=== PATIENT | male | born 1995 | race African-American/Black ===

== ENCOUNTER 2017-11-18 18:01 | Emergency (ER) | payer SELFPAY ==
[2017-11-18 19:35] LABS: APPEARANCE,URINE CLEAR; BILIRUBIN,URINE NEGATIVE (NEGATIVE); COLOR,URINE YELLOW; GLUCOSE, URINE NEGATIVE (NEGATIVE); KETONES,URINE NEGATIVE (NEGATIVE); LEUKOCYTE ESTERASE,URINE NEGATIVE (NEGATIVE); NITRITE,URINE NEGATIVE (NEGATIVE); PROTEIN,URINE NEGATIVE (NEGATIVE); URINE SPECIFIC GRAVITY 1.027
[2017-11-18] MEDS ORDERED: PENICILLIN G BENZATHINE 1.2 MILLION UNIT/2 ML DISP.SYRIN IM ONE (20:06)
--- NOTE | 2017-11-18 20:28 | ER Document Report ---
ED GI/ - General Chief Complaint: STD Exposure Stated Complaint: POSSIBLE INFECTION Time Seen by Provider: 11/18/17 19:34 Mode of Arrival: Ambulatory Information source: Patient Notes: 22-year-old male presented to ED for treatment for syphilis. His " "was diagnosed with syphilis on his last visit on 11/16/2017. Is they have unprotected sex both partners were treated. Patient was also tested for gonorrhea and chlamydia while he was in the emergency room. He also complained of tag-like areas to his buttocks and anus. TRAVEL OUTSIDE OF THE [place] IN LAST 30 DAYS: No - HPI Patient complains to provider of: Other - Skin tags to buttocks and anus, partner has syphilis. Onset: Other - Skin tags have been for a long time and increase in the number Timing/Duration: Gradual Quality of pain: No pain Severity in ED: None Pain Level: Denies Sexual history: Rectal penetration, STD exposure Associated symptoms: Other - Skin tags to buttocks and anus, male partner has syphilis Exacerbated by: Denies Relieved by: Denies Similar symptoms previously: Yes - He has 2 skin tags no to the syphilis Recently seen / treated by doctor: No - Related Data Allergies/Adverse Reactions: No Known Allergies Allergy (Unverified 11/18/17 18:14) Past Medical History - General Information source: Patient - Social History Smoking Status: Current Every Day Smoker Cigarette use (# per day): Yes - 7-10 cigarettes a day Smoking Education Provided: Yes - Woman Frequency of alcohol use: Social Drug Abuse: None Occupation: Call center Lives with: Spouse/Significant other Family History: Arthritis - Gout, Hyperlipidemia. denies: CAD, COPD, CVA, DM, Hypertension, Malignancy, Thyroid Disfunction - Past Medical History Cardiac Medical History: Reports: None Pulmonary Medical History: Reports: None EENT Medical History: Reports: None Neurological Medical History: Reports: None Endocrine Medical History: Reports: None Renal/ Medical History: Reports: None Malignancy Medical History: Reports None GI Medical History: Reports: None Musculoskeltal Medical History: Reports None Skin Medical History: Reports None Psychiatric Medical History: Reports: None Traumatic Medical History: Reports: None Infectious Medical History: Reports: None Surgical Hx: Negative Past Surgical History: Reports: None - Immunizations Immunizations up to date: Yes Review of Systems - Review of Systems Constitutional: No symptoms reported EENT: No symptoms reported Cardiovascular: No symptoms reported Respiratory: No symptoms reported Gastrointestinal: No symptoms reported Genitourinary: No symptoms reported Male Genitourinary: Other - Multiple skin tags to buttocks and anus Musculoskeletal: No symptoms reported Skin: No symptoms reported Hematologic/Lymphatic: No symptoms reported Neurological/Psychological: No symptoms reported -: Yes All other systems reviewed and negative Physical Exam - Vital signs Vitals: Temp Pulse Resp BP Pulse Ox 98.6 F 70 16 157/74 H 98 11/18/17 18:19 11/18/17 18:19 11/18/17 18:19 11/18/17 18:19 11/18/17 18:19 Interpretation: Normal - General General appearance: Appears well, Alert - HEENT Head: Normocephalic, Atraumatic Eyes: Normal Pupils: PERRL - Respiratory Respiratory status: No respiratory distress Chest status: Nontender Breath sounds: Normal Chest palpation: Normal - Cardiovascular Rhythm: Regular Heart sounds: Normal auscultation Murmur: No - Abdominal Inspection: Normal Distension: No distension Bowel sounds: Normal Tenderness: Nontender Organomegaly: No organomegaly - Genitourinary Inspection: Other - Multiple skin tags to the anus and buttocks, genital warts - Back Back: Normal, Nontender - Extremities General upper extremity: Normal inspection, Nontender, Normal color, Normal ROM , Normal temperature General lower extremity: Normal inspection, Nontender, Normal color, Normal ROM , Normal temperature, Normal weight bearing. No: Cindy's sign - Neurological Neuro grossly intact: Yes Cognition: Normal Orientation: AAOx4 [place] Coma Scale Eye Opening: Spontaneous [place] Coma Scale Verbal: Oriented [place] Coma Scale Motor: Obeys Commands Aruna Coma Scale Total: 15 Speech: Normal Motor strength normal: LUE, RUE, LLE, RLE Sensory: Normal - Psychological Associated symptoms: Normal affect, Normal mood - Skin Skin Temperature: Warm Skin Moisture: Dry Skin Color: Normal Course - Re-evaluation Re-evalutation: 11/19/17 02:26 Patient was treated with penicillin G 2.4 million units for his male partners diagnosis of syphilis. He was also given instructions on genital warts and need to follow-up with his primary doctor and a urologist to have these removed. He returned call 2 hours after his visit and was given his results of negative GC and chlamydia. - Vital Signs Vital signs: Temp Pulse Resp BP Pulse Ox 97.8 F 71 16 143/88 H 98 11/18/17 21:45 11/18/17 21:45 11/18/17 21:45 11/18/17 21:45 11/18/17 21:45 - Laboratory Laboratory results interpreted by me: 11/18/17 19:00 Urine Urobilinogen 2.0 H Discharge - Discharge Clinical Impression: STD exposure, Genital warts Condition: Stable Disposition: HOME, SELF-CARE Additional Instructions: Genital Warts You have genital warts. These are caused by the same virus that causes warts elsewhere on the body. The warts are contagious by sexual contact. Your sexual partner should also be evaluated. Genital warts usually require repeated treatments to cure. Warts can be removed by freezing or cautery, or by application of chemicals. Untreated, they often worsen and spread. Be sure to follow up as instructed by your doctor. Do not have sexual activity within 48 hours after application of chemicals to the warts. At other times, use a barrier (such as a condom) so you do not infect your partner with warts. Call the doctor if you develop swelling, increasing pain, fever, or discharge. You are being treated with penicillin due to your partner having syphilis. I have given you and your partner a copy of up-to-date education for syphilis. Penicillins The antibiotic you have received is a member of the penicillin family. This is a very useful class of antibiotics. The particular type of antibiotic chosen for you was determined by the nature of your problem. Penicillins are absorbed best when taken on an empty stomach, and should be taken either a half hour before or two hours after a meal. Some newer medicines of the penicillin class are better taken with food -- if this is the case, the pharmacist will label the medicine to alert you. Penicillins usually have no side effects. However, allergy to penicillins is common. If you have had an allergic reaction to any drug of the penicillin family, you should never take any other penicillin. Notify your doctor at once if you develop hives, itching, swelling, faintness, or shortness of breath. Less serious side effects can include nausea or diarrhea. You have been tested for gonorrhea and chlamydia. These results will not come back for about 2 hours. Please call [phone] in about 2 hours for these results. Due to the fact that you are getting the penicillin injection I do not want to treat you with more antibiotics unless they are necessary. If you are positive for the gonorrhea or chlamydia you will need to return for these treatments. FOLLOW-UP CARE: If you have been referred to a physician for follow-up care, call the physician s office for an appointment as you were instructed or within the next two days. If you experience worsening or a significant change in your symptoms, notify the physician immediately or return to the Emergency Department at any time for re-evaluation. Forms: Elevated Blood Pressure, Smoking Cessation Education, Return to Work
[2017-11-18 21:03] LABS: CHLAM PCR NOT DETECTED (NOT DETECT); GON PCR NOT DETECTED (NOT DETECT)
[2017-11-18 21:46] VITALS: BP 143/88
== END 2017-11-18 21:44 | disposition home or self-care (01) ==
LOC: ER 18:01
DX: Z20.2 Contact with and (suspected) exposure to infections with a predominantly sexual mode of transmission (principal); A63.0 Anogenital (venereal) warts; F17.210 Nicotine dependence, cigarettes, uncomplicated
CPT/HCPCS: 99283; 96372; 81001; 87491; 87591; J0561

== ENCOUNTER 2018-02-15 21:22 | Emergency (ER) | payer SELFPAY ==
[2018-02-15 21:47] VITALS: BP 152/86
[2018-02-15] MEDS ORDERED: LIDOCAINE 1% INJ-PF (10 MG/ML) 30 ML SDV INJ ONE (23:30)
[2018-02-15] MEDS ORDERED: ACETAMINOPHEN 325 MG TABLET PO ONE (23:33)
--- NOTE | 2018-02-15 23:37 | ER Document Report ---
ED Hand/Wrist Injury - General Chief Complaint: Laceration Stated Complaint: RIGHT PINKY FINGER LACERATION Time Seen by Provider: 02/15/18 23:18 Mode of Arrival: Ambulatory Information source: Patient Notes: 22-year-old male presents to ED for complaint of laceration to the right fifth finger. He states he was cutting a CABG with a knife when he cut his finger. He states his tetanus is within the last year. TRAVEL OUTSIDE OF THE [place] IN LAST 30 DAYS: No - HPI Injury to: Small finger Onset: This evening Where: Home, Indoors Timing: Still present Quality of pain: Sharp, Throbbing Severity: Moderate Pain Level: 4 Context: Laceration - Related Data Allergies/Adverse Reactions: No Known Allergies Allergy (Unverified 11/18/17 18:14) Past Medical History - General Information source: Patient - Social History Smoking Status: Current Every Day Smoker Cigarette use (# per day): Yes - 1/3-1/2 ppd Chew tobacco use (# tins/day): No Smoking Education Provided: Yes - 4 min Frequency of alcohol use: None Drug Abuse: None Lives with: Spouse/Significant other Family History: Arthritis - Gout, Hyperlipidemia. denies: CAD, COPD, CVA, DM, Hypertension, Malignancy, Thyroid Disfunction Patient has suicidal ideation: No Patient has homicidal ideation: No - Past Medical History Cardiac Medical History: Reports: None Pulmonary Medical History: Reports: None EENT Medical History: Reports: None Neurological Medical History: Reports: None Endocrine Medical History: Reports: None Renal/ Medical History: Reports: None Malignancy Medical History: Reports None GI Medical History: Reports: None Musculoskeltal Medical History: Reports None Skin Medical History: Reports None Psychiatric Medical History: Reports: None Traumatic Medical History: Reports: None Infectious Medical History: Reports: None Surgical Hx: Negative Past Surgical History: Reports: None - Immunizations Immunizations up to date: Yes Review of Systems - Review of Systems Constitutional: No symptoms reported EENT: No symptoms reported Cardiovascular: No symptoms reported Respiratory: No symptoms reported Gastrointestinal: No symptoms reported Genitourinary: No symptoms reported Male Genitourinary: No symptoms reported Musculoskeletal: No symptoms reported Skin: Other - laceration to right 5th finger Hematologic/Lymphatic: No symptoms reported Neurological/Psychological: No symptoms reported -: Yes All other systems reviewed and negative Physical Exam - Vital signs Vitals: Temp Pulse Resp BP Pulse Ox 98.7 F 95 18 152/86 H 96 02/15/18 21:46 02/15/18 21:46 02/15/18 21:46 02/15/18 21:46 02/15/18 21:46 Interpretation: Normal - General General appearance: Appears well, Alert - HEENT Head: Normocephalic, Atraumatic Eyes: Normal Pupils: PERRL - Respiratory Respiratory status: No respiratory distress Chest status: Nontender Breath sounds: Normal Chest palpation: Normal - Cardiovascular Rhythm: Regular Heart sounds: Normal auscultation Murmur: No - Abdominal Inspection: Normal Distension: No distension Bowel sounds: Normal Tenderness: Nontender Organomegaly: No organomegaly - Back Back: Normal, Nontender - Extremities General upper extremity: Normal inspection, Nontender, Normal color, Normal ROM , Normal temperature General lower extremity: Normal inspection, Nontender, Normal color, Normal ROM , Normal temperature, Normal weight bearing. No: Cindy's sign Hand: Laceration, No evidence of human bite, No evidence of FB. No: Abrasion, Deformity, Dislocation, Ecchymosis, Instability, Nail injury, Swelling, Tendon deficit - Neurological Neuro grossly intact: Yes Cognition: Normal Orientation: AAOx4 Aruna Coma Scale Eye Opening: Spontaneous Aruna Coma Scale Verbal: Oriented [place] Coma Scale Motor: Obeys Commands Aruna Coma Scale Total: 15 Speech: Normal Motor strength normal: LUE, RUE, LLE, RLE Sensory: Normal - Psychological Associated symptoms: Normal affect, Normal mood - Skin Skin Temperature: Warm Skin Moisture: Dry Skin Color: Normal Skin irregularity: Laceration - fifth finger palmar side proximal mip area Location of irregularity: Extremities Irregularity with: Tenderness Course - Re-evaluation Re-evalutation: 02/16/18 00:29 Patient cut his finger with a knife while cutting up cabbage for supper. His finger was cleaned well with Shur-Clens and anesthetized with lidocaine and sutured shut. He has been instructed to follow-up with orthopedics due to the area where his finger was cut. He does have full range of motion and no tendon lacerations noted at this time but he is instructed to follow-up with orthopedic to ensure continued range of motion to this finger. He was started on Keflex tonight and given a prescription to Keflex. He was also given special hand laceration instructions. There was a splint applied to the finger to reduce motion of the finger while the laceration is healing. - Vital Signs Vital signs: Temp Pulse Resp BP Pulse Ox 98.7 F 95 18 152/86 H 96 02/15/18 21:46 02/15/18 21:46 02/15/18 21:46 02/15/18 21:46 02/15/18 21:46 Procedures - Immobilization Right Finger 5th digit Time completed: 00:32 Immobilizer type: Finger protection Performed by: PCT Post-Proc Neuro Vasc Exam: Normal Alignment checked and good: Yes - Laceration/Wound Repair Right Finger 5th digit Time completed: 00:22 Wound length (cm): 2 Wound's Depth, Shape: Linear Laceration pre-procedure: Sterile PPE donned, Sterile drapes applied, Shur- Clens applied Anesthetic type: 1% Lidocaine Volume Anesthetic (mLs): 6 Wound explored: No foreign body removed Irrigated w/ Saline (mLs): 500 Wound Debrided: Minimal Wound Repaired With: Sutures Suture Size/Type: 4:0, Ethilon Number of Sutures: 6 Post-procedure wound care: Sterile dressing applied, Splint applied Post-procedure NV exam normal: Yes Complications: No Discharge - Discharge Clinical Impression: laceration 5th finger right Condition: Stable Disposition: HOME, SELF-CARE Additional Instructions: Hand Laceration A laceration on the hand can present special problems. It may be difficult to keep the wound dry. Motion of the fingers can disturb the healing edges. Your work may involve exposure to damaging chemicals or water. Keep the wound clean and dry. If you can't keep the cut dry, undisturbed, and free of chemical exposure, please discuss this with the doctor. If any water or chemical gets onto the dressing, remove it, blot the wound dry, then apply a fresh bandage. Dressings should be changed every day. If you feel the stitches pulling as you move the hand, a splint or other form of protection is needed. If any signs of infection occur (swelling, redness, increasing tenderness, red streaks, tender lumps in the armpit, or fever), see the doctor immediately. SOAP CLEANSING: do not get wet for 24 hours then Gently wash the wound daily using a mild soap (like Ivory, Phisoderm, Neutrogena). Use warm water, rubbing gently until all debris, ooze, and crusting have been washed from the wound. Allow to dry briefly (about 10 minutes) after cleaning. Repeat this cleansing at least three times a day for the first two days and then once or twice a day. ANTIBIOTIC OINTMENT PROTECTION: Your wounds are such that dressing them is not practical or optional. After cleansing, you should apply a thin coating of antibiotic ointment ( Bacitracin, not Neosporin) to the wounds at least three times daily. This lessens infection risk, and may decrease the amount of scarring. Use a q-tip or dull butter knife, not your finger, to apply this ointment. Any debris or ooze which builds up in the ointment should be gently rubbed off with a sterile gauze pad. Harder crusting may need to be gently scrubbed off with a clean wash cloth with soap and warm water, perhaps applying a warm, wet wash cloth to the wound for ten minutes first. Development of redness, severe itching, or blistering may mean allergy to the ointment. See the doctor. Cephalexin The antibiotic you've been prescribed is a member of the cephalosporin class. This type of antibiotic covers a wide variety of infections, including those of the skin, lungs, and urinary tract. It's useful for staph infections. This antibiotic is slightly similar to the penicillin family. In rare cases , a person who is allergic to penicillin will also be allergic to this medication. If you have had a severe allergic reaction to penicillin, and have not taken this antibiotic since that time, notify your doctor. Antibiotics which cover many germs ("broad spectrum" antibiotics) are more likely to cause diarrhea or "yeast" infections. Women prone to vaginal yeast problems may suffer an attack after taking this antibiotic. In infants, oral thrush (white spots "stuck" on the cheek) or yeast diaper rash may result. See your doctor if these problems occur. Call at once if you develop itching, hives , shortness of breath, or lightheadedness. PROPHYLACTIC ANTIBIOTIC: The antibiotics which have been prescribed are designed to decrease the risk of infection. Only certain types of wounds benefit from this -- the typical cut, scrape, or burn DOES NOT require antibiotics. Of course, infection can still occur despite the use of prophylactic antibiotics. Your wound will heal with less chance of an infectious complication if you take the medication as directed. The most important dose is the FIRST dose, so don't delay filling the prescription! It has been applied to the finger to prevent you from moving the finger back-and -forth and tearing of the sutures. He replaced the splint each time you clean and redressed the finger. Do not apply any pressure to the finger. Because this is a laceration to the hand I have recommended you follow-up with orthopedics. Please call orthopedics first thing in the morning and schedule a follow-up appointment. FOLLOW-UP CARE: Please return in ___3__ days for an infection check and dressing change. Your sutures should be removed in ___9__ days. To facilitate a timely removal of your sutures, you may return to the Emergency Department at [facility]. You do not need to call for an appointment, but the best time to come in for suture removal is early in the morning. If you have been referred to another physician for follow-up care, call that physicians office for an appointment as you were instructed. If you experience a significant change in your laceration, or if you are concerned there may be an infection (swelling, redness, drainage, increasing tenderness, red streaks, tender lumps in the armpit or groin above the laceration, or fever) , return to the Emergency Department immediately re-evaluation. Prescriptions: Cephalexin Monohydrate [Keflex 500 mg Capsule] 500 mg PO Q6H 5 Days capsule Forms: Elevated Blood Pressure, Smoking Cessation Education, Return to Work Referrals: LAURENCE VILLEGAS MD [ACTIVE STAFF] - Follow up as needed
[2018-02-16] MEDS ORDERED: CEPHALEXIN 500 MG CAPSULE PO ONE (00:20)
== END 2018-02-16 00:46 | disposition home or self-care (01) ==
LOC: ER 21:22
PROC: 0HQFXZZ Repair Right Hand Skin, External Approach (ICD-10-PCS; principal; 2018-02-15)
DX: S61.216A Laceration without foreign body of right little finger without damage to nail, initial encounter (principal); W26.0XXA Contact with knife, initial encounter; Y93.G1 Activity, food preparation and clean up; Y92.009 Unspecified place in unspecified non-institutional (private) residence as the place of occurrence of the external cause; F17.210 Nicotine dependence, cigarettes, uncomplicated
CPT/HCPCS: 99282; 12001; J3490

== ENCOUNTER 2018-02-28 16:01 | Emergency (ER) | payer SELFPAY ==
--- NOTE | 2018-02-28 16:11 | ER Document Report ---
HPI - HPI Patient complains to provider of: Suture removal Onset: Other - 10 days Quality of pain: No pain Pain Level: Denies Context: 22-year-old had lateral left fifth finger sutured 10 days ago in the emergency department. He asks when the feeling will come back to his lateral finger. He has kept it clean Associated Symptoms: None Exacerbated by: Denies Relieved by: Denies - ROS ROS below otherwise negative: Yes Systems Reviewed and Negative: Yes All other systems reviewed and negative Past Medical History - General Information source: Patient - Social History Smoking Status: Never Smoker Frequency of alcohol use: None Drug Abuse: None Lives with: Family Family History: Arthritis - Gout, Hyperlipidemia - Medical History Medical History: Negative Renal/ Medical History: Denies: Hx Peritoneal Dialysis Surgical Hx: Negative - Immunizations Immunizations up to date: Yes Vertical Provider Document - CONSTITUTIONAL Agree With Documented VS: Yes Exam Limitations: No Limitations - INFECTION CONTROL TRAVEL OUTSIDE OF THE [place] IN LAST 30 DAYS: No - NECK Neck: Supple - DERM Integumentary: Laceration - crusted left lateral 5th finger laceration, no erythema or pus. Full range of motion, dulled sensation at the laceration site Discharge - Discharge Clinical Impression: Visit for suture removal Condition: Good Disposition: HOME, SELF-CARE Instructions: Suture Removal Additional Instructions: Make sure you do not [place] hit the area for at least another week Return to the emergency room any concerns
[2018-02-28 16:23] VITALS: BP 137/76
== END 2018-02-28 16:21 | disposition home or self-care (01) ==
LOC: ER 16:01
DX: Z48.02 Encounter for removal of sutures (principal); S61.217D Laceration without foreign body of left little finger without damage to nail, subsequent encounter; W45.8XXD Other foreign body or object entering through skin, subsequent encounter

== ENCOUNTER 2018-07-12 14:28 | Emergency (ER) | payer SELFPAY ==
[2018-07-12 14:42] VITALS: BP 159/82
[2018-07-12] MEDS ORDERED: METHYLPREDNISOLONE INJ 125 MG/2 ML SDV IM ONE (15:26)
--- NOTE | 2018-07-12 15:31 | ER Document Report ---
HPI - HPI Pain Level: 5 Notes: Patient is a 23-year-old male with no significant past medical history who presents to the ED complaining of nasal congestion/discharge, sneezing, occasional cough over the last several months intermittently. Patient states that he believes he has allergies and has tried some allergy medicine with minimal relief. Patient states that he does not feel like he has a cold. He has been eating and drinking without difficulties. He is urinating normally. Denies any drug allergies. Patient is unaware of any allergies that he is being exposed to. He has not been seen by a family provider or welder first class for the symptoms. Denies any headache, fever, neck pain, sore throat, chest pain, palpitations, syncope, shortness of breath, wheeze, dyspnea, abdominal pain, nausea/vomiting/diarrhea, urinary retention, dysuria, hematuria, or rash. - ROS Systems Reviewed and Negative: Yes All other systems reviewed and negative - RESPIRATORY Respiratory: REPORTS: Coughing Past Medical History - Social History Smoking Status: Former Smoker Frequency of alcohol use: Social Family History: Arthritis - Gout, Hyperlipidemia Patient has suicidal ideation: No Patient has homicidal ideation: No Renal/ Medical History: Denies: Hx Peritoneal Dialysis - Immunizations Immunizations up to date: Yes Vertical Provider Document - CONSTITUTIONAL Agree With Documented VS: Yes Notes: PHYSICAL EXAMINATION: GENERAL: Well-appearing, well-nourished and in no acute distress. A&Ox4. Answers questions appropriately. Moves comfortably w/o notable distress HEAD: Atraumatic, normocephalic. EYES: Pupils equal round and reactive to light, extraocular movements intact, sclera anicteric, conjunctiva are normal. ENT: EAC clear b/l. TM's intact b/l without erythema, fluid, or perforation. Nares patent and with clear discharge. + cobblestoning. oropharynx no erythema without exudates. No tonsilar hypertrophy without erythema or exudate. No palatine shift. Uvula midline. No tongue protrusion. No drooling , hoarseness, or airway compromise. Moist mucous membranes. No sinus tenderness. NECK: Normal range of motion, supple without lymphadenopathy. No rigidity/ meningismus. LUNGS: Breath sounds clear to auscultation bilaterally and equal. No wheezes rales or rhonchi. No retractions HEART: Regular rate and rhythm without murmurs, rubs, gallops. ABDOMEN: Soft, nontender, nondistended abdomen. No guarding, no rebound. No masses appreciated. Normal bowel sounds present. No CVA tenderness bilaterally. No hepatosplenomegaly. NEUROLOGICAL: Normal speech, normal gait. Normal sensory, motor exams PSYCH: Normal mood, normal affect. SKIN: Warm, Dry, normal turgor, no rashes or lesions noted. - INFECTION CONTROL TRAVEL OUTSIDE OF THE [place] IN LAST 30 DAYS: No Course - Re-evaluation Re-evalutation: 07/12/18 15:28 Patient is an afebrile, well-hydrated, 23-year-old male who presents to the ED with rhinitis, suspect allergic. Vitals are acceptable without any significant tachycardia, tachypnea, or hypoxia. PE is otherwise unremarkable aside from the noted cobblestoning to his nares bilaterally. Patient is nontoxic- appearing and is tolerating p.o. without difficulties. Slight withdrawal given IM today. I will send him home with a steroid taper that he can begin tomorrow as well as Singulair daily. No labs or imaging warranted at this time. Low suspicion for any sepsis, meningitis, severe dehydration, respiratory compromise , or other systemic emergent condition at this time. Pt is aware that condition can change from initial presentation and he needs to monitor symptoms closely and seek medical attention with any acute changes. Conservative measures otherwise for symptoms. Recheck with PCM/welder first class. Return to the ED with any worsening/concerning symptoms otherwise as reviewed in discharge. Patient is in agreement. - Vital Signs Vital signs: Temp Pulse Resp BP Pulse Ox 99.0 F 66 18 159/82 H 99 07/12/18 14:41 07/12/18 14:41 07/12/18 14:41 07/12/18 14:41 07/12/18 14:41 Discharge - Discharge Clinical Impression: Allergic rhinitis Qualifiers: Allergic rhinitis trigger: unspecified Allergic rhinitis seasonality: unspecified Qualified Code(s): J30.9 - Allergic rhinitis, unspecified Condition: Stable Disposition: HOME, SELF-CARE Additional Instructions: Maintain adequate fluid intake Take meds as directed tylenol/ibuprofen as needed over the counter cold medication as needed for symptoms (i.e. nasonex, antihistamines, etc) Humidified air may help Wash your hands regularly F/u: with your PCM in 3-5 days for a recheck Return to the ED with any fever, worsening pain, chest pain, palpitations, syncope, worsening [place], neck pain/stiffness, shortness of breath, wheezing, drooling, trouble swallowing/breathing, abdominal pain, n/v/d, rash, or worsening/concerning symptoms otherwise. Prescriptions: Montelukast Sodium [Singulair] 10 mg PO DAILY #30 tablet Prednisone 20 mg PO ASDIR #18 tablet Forms: Elevated Blood Pressure Referrals: MAGO TERESA MD [ACTIVE STAFF] - Follow up as needed
== END 2018-07-12 15:53 | disposition home or self-care (01) ==
LOC: ER 14:28
DX: J30.9 Allergic rhinitis, unspecified (principal); R09.81 Nasal congestion; R06.7 Sneezing; R05 Cough; Z87.891 Personal history of nicotine dependence
CPT/HCPCS: 99283; 96372; J2930

== ENCOUNTER 2019-04-10 22:53 | Emergency (ER) | payer SELFPAY ==
[2019-04-10] MEDS ORDERED: IPRATROPIUM/ALBUTEROL 0.5-2.5 MG/3 ML AMPUL NEB ONE ×2 (22:57→23:08)
[2019-04-10] MEDS ORDERED: PREDNISONE 20 MG TABLET PO ONE (23:09)
[2019-04-10] MEDS ORDERED: ALBUTEROL SULFATE 0.083% NEB 2.5 MG/3 ML AMPUL NEB ONE (23:23)
[2019-04-11] MEDS ORDERED: ALBUTEROL SULFATE 0.083% NEB 2.5 MG/3 ML AMPUL NEB ONE (00:36)
--- NOTE | 2019-04-11 00:40 | ER Document Report ---
ED Medical Screen (RME) - General Chief Complaint: Breathing Difficulty Stated Complaint: DIFFICULTY BREATHING Time Seen by Provider: 04/11/19 00:36 TRAVEL OUTSIDE OF THE [place] IN LAST 30 DAYS: No - HPI Notes: 04/11/19 00:37 23-year-old male urgency department with complaints of progressively worsening cough for the past 5 days as well as wheezing. States he has a history of environmental allergies and has had to be put on allergy medicine before but he has never wheezed. He does not have asthma. He does smoke. When patient initially arrived he was brought back by nursing staff immediately for breathing treatment and required a second breathing treatment. Prednisone was ordered and patient was still having expiratory wheezes so a third breathing short treatment was ordered. Patient denies fevers, chills. He does not recall any recent sick contacts. A medical screening exam was performed and imaging as well as medicines were ordered for patient. Voice Recognition technology was used to generate this chart. - Related Data Allergies/Adverse Reactions: No Known Allergies Allergy (Verified 04/10/19 23:12) Past Medical History Renal/ Medical History: Denies: Hx Peritoneal Dialysis - Immunizations Immunizations up to date: Yes
--- NOTE | 2019-04-11 01:07 | RADIOLOGY REPORT (SQ) ---
EXAM DESCRIPTION: XR CHEST 2 VIEWS COMPLETED DATE/TME: 04/11/2019 00:36 CLINICAL HISTORY: 23 years, Male, wheezing, cough COMPARISON: None. NUMBER OF VIEWS: 2 TECHNIQUE: 2 view chest LIMITATIONS: None. FINDINGS: Heart size normal. Mild elevation right hemidiaphragm. Lungs are clear. No pneumothorax IMPRESSION: No acute cardiopulmonary process copyright 2010 [employer]- All Rights Reserved
[2019-04-11] MEDS ORDERED: ALBUTEROL SULFATE HFA (90 MCG/PUFF) 8 GM MDI (1 MDI/ER DISP) IH ONE (01:23)
--- NOTE | 2019-04-11 01:28 | ER Document Report ---
ED Respiratory Problem - General Chief Complaint: Breathing Difficulty Stated Complaint: DIFFICULTY BREATHING Time Seen by Provider: 04/11/19 00:36 Notes: Patient is a 23-year-old male that comes to the emergency department with chief complaint of cough that has worsened over the past 4 to 5 days, he states he has developed wheezing and shortness of breath. He does smoke but he denies a history of asthma. He denies fever/chills, sick contacts, diagnosed medical problems, or any past medical history other than seasonal allergies. He denies history of the same. Patient was seen in triage, given prednisone and multiple duo nebs, he states his breathing is completely better now. He denies any current complaints other than occasional cough. TRAVEL OUTSIDE OF THE [place] IN LAST 30 DAYS: No - Related Data Allergies/Adverse Reactions: No Known Allergies Allergy (Verified 04/10/19 23:12) Past Medical History - General Information source: Patient - Social History Smoking Status: Current Every Day Smoker Smoking Education Provided: Yes - <3 min Frequency of alcohol use: None Drug Abuse: None Lives with: Family Family History: Arthritis - Gout, Hyperlipidemia Patient has suicidal ideation: No Patient has homicidal ideation: No Renal/ Medical History: Denies: Hx Peritoneal Dialysis - Immunizations Immunizations up to date: Yes Hx Diphtheria, Pertussis, Tetanus Vaccination: Yes Review of Systems - Review of Systems Constitutional: No symptoms reported EENT: No symptoms reported Cardiovascular: No symptoms reported Respiratory: See HPI Gastrointestinal: No symptoms reported Genitourinary: No symptoms reported Male Genitourinary: No symptoms reported Musculoskeletal: No symptoms reported Skin: No symptoms reported Hematologic/Lymphatic: No symptoms reported Neurological/Psychological: No symptoms reported Physical Exam - Vital signs Vitals: Temp Pulse Resp BP Pulse Ox 98.6 F 84 18 156/82 H 97 04/11/19 01:31 04/11/19 01:31 04/11/19 01:31 04/11/19 01:31 04/11/19 01:31 - Notes Notes: GENERAL: Alert, interacts well. No acute distress. HEAD: Normocephalic, atraumatic. EYES: Pupils equal, round, and reactive to light. Extraocular movements intact. ENT: Oral mucosa moist, tongue midline. Oropharynx unremarkable. Airway patent. Nares patent, no nasal septal hematoma, TM's intact. NECK: Full range of motion. Supple. Trachea midline. LUNGS: Clear to auscultation bilaterally, no wheezes, rales, or rhonchi. No respiratory distress. Occasional mild cough HEART: Regular rate and rhythm. No murmur ABDOMEN: Soft, non-tender. Non-distended. GENITOURINARY: Deferred EXTREMITIES: Moves all 4 extremities spontaneously. No edema, normal radial and dorsalis pedis pulses bilaterally. No cyanosis. BACK: no cervical, thoracic, lumbar midline tenderness. No saddle anesthesia, normal distal neurovascular exam. Moves all extremities in full range of motion. NEUROLOGICAL: Alert and oriented x3. Normal speech. Cranial nerves II through XI I grossly intact. PSYCH: Normal affect, normal mood. SKIN: Warm, dry, normal turgor. No rashes or lesions noted. Course - Re-evaluation Re-evalutation: On my evaluation patient has occasional cough but his lungs are clear. He states he feels completely better. No hypoxia on my evaluation. Patient will be provided with an inhaler, prednisone, discussed smoking cessation, discussed bronchitis and expectations, discussed follow-up and return precautions. Patient states understanding and agreement. - Vital Signs Vital signs: Temp Pulse Resp BP Pulse Ox 98.6 F 84 18 156/82 H 97 04/11/19 01:31 04/11/19 01:31 04/11/19 01:31 04/11/19 01:04/11/19 01:31 Discharge - Discharge Clinical Impression: Wheezing, Cough Upper respiratory infection Qualifiers: URI type: unspecified URI Qualified Code(s): J06.9 - Acute upper respiratory infection, unspecified Condition: Stable Disposition: HOME, SELF-CARE Additional Instructions: Your chest x-ray is normal. Your examination is consistent with bronchitis, and upper respiratory infection. This was most likely viral to begin with. Symptoms should resolve with time. Take prednisone as prescribed, take albuterol if needed, you can take [id number] Sudafed and and nasal spray as well. Stop smoking. Follow-up with primary care. Return if you worsen including fever, increased difficulty breathing, or any other concerning symptoms. Prescriptions: Albuterol Sulfate [Proair HFA Inhalation Aerosol 8.5 gm MDI] 2 puff IH Q4H PRN #1 mdi PRN Reason: Prednisone [Deltasone 20 mg Tablet] 3 tab PO DAILY 5 Days tablet Forms: Smoking Cessation Education, Return to Work, Elevated Blood Pressure
[2019-04-11 01:31] VITALS: BP 156/82
== END 2019-04-11 01:43 | disposition home or self-care (01) ==
LOC: ER 22:53
DX: J06.9 Acute upper respiratory infection, unspecified (principal); R05 Cough; R06.2 Wheezing; R06.02 Shortness of breath; F17.200 Nicotine dependence, unspecified, uncomplicated
CPT/HCPCS: 94640; 99284; 71046; J7512; J3490; J7620

== ENCOUNTER 2019-04-22 19:12 | Emergency (ER) | payer SELFPAY ==
[2019-04-22 19:30] VITALS: BP 135/74
[2019-04-22] MEDS ORDERED: METHYLPREDNISOLONE INJ 125 MG/2 ML SDV IM ONE (19:52)
[2019-04-22] MEDS ORDERED: IPRATROPIUM/ALBUTEROL 0.5-2.5 MG/3 ML AMPUL NEB ONE (19:52)
--- NOTE | 2019-04-22 19:53 | ER Document Report ---
ED Medical Screen (RME) - General Chief Complaint: Shortness Of Breath Stated Complaint: COUGH Time Seen by Provider: 04/22/19 19:43 TRAVEL OUTSIDE OF THE [place] IN LAST 30 DAYS: No - HPI Notes: 04/22/19 19:49 Patient is a 23-year-old male with a history of seasonal allergies and possible asthma who presents complaining of continued productive cough for the past 2-1/2 weeks since he was evaluated earlier this month. Patient states that today he started feeling somewhat short of breath with a cough and was sent home from work. EMS did provide patient with one breathing treatment prior to arrival. Dagoberto boles has been using his inhaler as directed and finished his steroid prescription that he was given at the previous visit. He is otherwise able to eat and drink without difficulty. He is urinating normally. Denies drug allergies. Patient is requesting a shot of a steroid. Denies [place], fever, neck pain, URI, CP, Abd pain, dysuria, back pain, or rash. I have treated and performed a rapid initial assessment of this patient. A comprehensive ED assessment and evaluation of the patient, analysis of test results and completion of medical decision making process will be conducted by additional ED providers. PHYSICAL EXAMINATION: GENERAL: Well-appearing, well-nourished and in no acute distress. A&Ox4. Answers questions appropriately. Patient is speaking in complete sentences very quickly without any respiratory distress. LUNGS: mild wheeze R>L. HEART: Regular rate and rhythm without murmurs, rubs, gallops. Extremities: No cyanosis, clubbing, or edema b/l. Cindy negative bilaterally. NEUROLOGICAL: Normal speech, normal gait. PSYCH: Normal mood, normal affect. - Related Data Allergies/Adverse Reactions: No Known Allergies Allergy (Verified 04/10/19 23:12) Past Medical History Renal/ Medical History: Denies: Hx Peritoneal Dialysis - Immunizations Immunizations up to date: Yes Hx Diphtheria, Pertussis, Tetanus Vaccination: Yes Physical Exam - Vital signs Vitals: Temp Pulse Resp BP Pulse Ox 98.5 F 116 H 20 135/74 H 95 04/22/19 19:27 04/22/19 19:27 04/22/19 19:27 04/22/19 19:27 04/22/19 19:27 Course - Vital Signs Vital signs: Temp Pulse Resp BP Pulse Ox 98.5 F 116 H 20 135/74 H 95 04/22/19 19:27 04/22/19 19:27 04/22/19 19:27 04/22/19 19:27 04/22/19 19:27
[2019-04-22] MEDS ORDERED: NORMAL SALINE 1000 ML 1,000 ML IV ONE (20:14)
--- NOTE | 2019-04-22 20:19 | ER Document Report ---
ED Respiratory Problem - General Chief Complaint: Shortness Of Breath Stated Complaint: COUGH Time Seen by Provider: 04/22/19 19:43 Notes: Patient is a 23-year-old male that comes to the emergency department for chief complaint of about 2 and half weeks of cough, congestion, wheezing. He was seen here initially by me, prescribed albuterol and prednisone, states that for the past couple of days he has felt weaker, has had worse coughing episodes and occasional wheezing. He states he has a lot of difficulty sleeping. He reports he feels worn out and has a low appetite. He denies fever/chills. He is a recent smoker but has not smoked over the past few weeks. He has a history of seasonal allergies, no diagnosed medical problems, denies medical history otherwise. TRAVEL OUTSIDE OF THE [place] IN LAST 30 DAYS: No - Related Data Allergies/Adverse Reactions: No Known Allergies Allergy (Verified 04/10/19 23:12) Past Medical History - General Information source: Patient - Social History Smoking Status: Current Every Day Smoker Smoking Education Provided: Yes - <3 min Frequency of alcohol use: None Drug Abuse: None Lives with: Family Family History: Arthritis - Gout, Hyperlipidemia Patient has suicidal ideation: No Patient has homicidal ideation: No Renal/ Medical History: Denies: Hx Peritoneal Dialysis - Immunizations Immunizations up to date: Yes Hx Diphtheria, Pertussis, Tetanus Vaccination: Yes Review of Systems - Review of Systems Constitutional: No symptoms reported EENT: See HPI Cardiovascular: No symptoms reported Respiratory: See HPI Gastrointestinal: No symptoms reported Genitourinary: No symptoms reported Male Genitourinary: No symptoms reported Musculoskeletal: No symptoms reported Skin: No symptoms reported Hematologic/Lymphatic: No symptoms reported Neurological/Psychological: No symptoms reported Physical Exam - Vital signs Vitals: Temp Pulse Resp BP Pulse Ox 98.5 F 116 H 20 135/74 H 95 04/22/19 19:27 04/22/19 19:27 04/22/19 19:27 04/22/19 19:27 04/22/19 19:27 - Notes Notes: GENERAL: Alert, interacts well. No acute distress. HEAD: Normocephalic, atraumatic. EYES: Pupils equal, round, and reactive to light. Extraocular movements intact. ENT: Oral mucosa moist, tongue midline. Oropharynx unremarkable. Airway patent. Mild nasal congestion, no nasal septal hematoma, TM's intact. NECK: Full range of motion. Supple. Trachea midline. LUNGS: Frequent cough, a few scattered coarse breath sounds but no overt wh eezes, rales, or rhonchi. Speaks in full sentences without difficulty. No tachypnea or respiratory distress. HEART: Regular rate and rhythm. No murmur ABDOMEN: Soft, non-tender. Non-distended. Bowel sounds present in all 4 quadrants. GENITOURINARY: Deferred EXTREMITIES: Moves all 4 extremities spontaneously. No edema, normal radial and dorsalis pedis pulses bilaterally. No cyanosis. BACK: no cervical, thoracic, lumbar midline tenderness. No saddle anesthesia, normal distal neurovascular exam. Moves all extremities in full range of motion. NEUROLOGICAL: Alert and oriented x3. Normal speech. Cranial nerves II through XII grossly intact. SKIN: Warm, dry, normal turgor. No rashes or lesions noted. Course - Re-evaluation Re-evalutation: Patient is not tachycardic on my exam. Wheezing is cleared after DuoNeb. Given Solu-Medrol. Patient with frequent cough, some congestion, still consistent with bronchitis. No hypoxia, fever, or respiratory distress. Chest x-ray is unremarkable. CBC shows leukocytosis but this is expected as patient has just completed a course of steroids. Chemistry unremarkable. Patient provided with another inhaler here, Flonase, and Vicodin so he can sleep at night. He states his biggest complaint is he cannot rest because he cannot stop coughing all night. He will use this only at night, discussed precautions, he will only use this if absolutely needed. Patient has not smoked in several weeks, he states he never intends to smoke again. Discussed expectations of resolving/recovering bronchitis, follow-up, and return precautions in detail. Patient states understanding and agreement. Stable at time of discharge. - Vital Signs Vital signs: Temp Pulse Resp BP Pulse Ox 98.5 F 116 H 20 135/74 H 95 04/22/19 19:27 04/22/19 19:27 04/22/19 19:27 04/22/19 19:27 04/22/19 19:27 - Laboratory Result Diagrams: 04/22/19 20:36 04/22/19 20:36 Laboratory results interpreted by me: 04/22/19 04/22/19 20:36 20:36 WBC 18.6 H RBC 5.64 H MCH 26.6 L Lymphocytes % 12.0 L Absolute Neutrophils 14.1 H Absolute Eosinophils 0.8 H Calcium 10.4 H - Diagnostic Test Radiology results interpreted by me: EKG shows sinus rhythm at a rate of 89, QTC of 409. Normal axis. There is some ST elevations in the anterior leads, however these are consistent with J-point elevations. There are no ischemic T wave inversions or ST segment changes noted. Discharge - Discharge Clinical Impression: Cough, Bronchitis, Wheezing Condition: Stable Disposition: HOME, SELF-CARE Additional Instructions: Your work-up is reassuring. Your evaluation is still consistent with ongoing symptoms from bronchitis. Rest, drink plenty fluids, use the nasal spray, you can also use [id number] antihistamines. Use the prescribed inhaler. Use the pills/syrup provided at night to help you sleep and for cough (only if needed). Follow-up with primary care. Return if you worsen including developing fever, difficulty breathing, vomiting, or any other concerning symptoms. Prescriptions: Hydrocodone Bit/Homatropine [Hycodan Syrup 5-1.5 mg/5 ml Ud Cup] 5 ml PO Q4HP PRN #120 ml PRN Reason: Fluticasone Propionate [Flonase Nasal [place] 50 Mcg/[place] 16 gm] 2 sprays NASL Q12 #1 inhaler Forms: Smoking Cessation Education, Return to Work
--- NOTE | 2019-04-22 20:51 | RADIOLOGY REPORT (SQ) ---
EXAM DESCRIPTION: XR CHEST 2 VIEWS COMPLETED DATE/TME: 04/22/2019 19:52 CLINICAL HISTORY: 23 years, Male, cough COMPARISON: None. NUMBER OF VIEWS: TECHNIQUE: LIMITATIONS: None. FINDINGS: No evidence of pulmonary infiltrate or pleural effusion. The heart and mediastinum are unremarkable. Pulmonary vascularity appears normal. IMPRESSION: Normal chest x-ray. copyright 2010 [employer] [facility] [employer]- All Rights Reserved
[2019-04-22 20:52] LABS: ABSOLUTE BASOPHILS # (AUTO) 0.1 10^3/uL (0.0-0.2); ABSOLUTE EOSINOPHILS # (AUTO) 0.8 10^3/uL (0.0-0.6); ABSOLUTE LYMPHOCYTES (AUTO) 2.2 10^3/uL (0.5-4.7); ABSOLUTE MONOCYTES (AUTO) 1.4 10^3/uL (0.1-1.4); ABSOLUTE NEUT (AUTO) 14.1 10^3/uL (1.7-8.2); BASOPHILS % (AUTO) 0.4 % (0-2); EOSINOPHILS % (AUTO) 4.2 % (0-6); HEMATOCRIT 45.9 % (37.9-51.0); MEAN CORPUSCULAR HEMOGLOBIN 26.6 pg (27.0-33.4); MEAN CORPUSCULAR HGB CONC 32.6 g/dL (32.0-36.0); MEAN CORPUSCULAR VOLUME 82 fl (80-97); MONOCYTES % (AUTO) 7.7 % (3-13); PLATELET COUNT 272 10^3/uL (150-450); RED BLOOD COUNT 5.64 10^6/uL (4.35-5.55); RED CELL DISTRIBUTION WIDTH 13.9 % (11.5-14.0); SEGMENTED NEUTROPHILS % (AUTO) 75.7 % (42-78); TOTAL CELLS COUNTED % (AUTO) 100 %; WHITE BLOOD COUNT 18.6 10^3/uL (4.0-10.5)
[2019-04-22 21:08] LABS: ANION GAP 12 (5-19); BLOOD UREA NITROGEN 13 mg/dL (7-20); CALCIUM 10.4 mg/dL (8.4-10.2); CARBON DIOXIDE 25 mmol/L (22-30); CHLORIDE 100 mmol/L (98-107); GLUCOSE 107 mg/dL (75-110); POTASSIUM 4.1 mmol/L (3.6-5.0); SODIUM 137.3 mmol/L (137-145)
[2019-04-22] MEDS ORDERED: HYDROCODONE/ACETAMINOPHEN 5-325 MG (6 TAB/ER DISP) PO PRN (21:23)
[2019-04-22] MEDS ORDERED: ALBUTEROL SULFATE HFA (90 MCG/PUFF) 8 GM MDI (1 MDI/ER DISP) IH ONE (21:23)
--- NOTE | 2019-04-22 22:01 | EKG REPORT ---
SEVERITY:- OTHERWISE NORMAL ECG - SINUS RHYTHM ST ELEVATION PROBABLY NORMAL VARIANT LVH : Confirmed by: Jose Post MD 22-Apr-2019 22:01:08
== END 2019-04-22 21:58 | disposition home or self-care (01) ==
LOC: ER 19:12
DX: J40 Bronchitis, not specified as acute or chronic (principal); R06.2 Wheezing; R06.02 Shortness of breath; R00.0 Tachycardia, unspecified; F17.200 Nicotine dependence, unspecified, uncomplicated
CPT/HCPCS: 93005; 94640; 99284; 96372; 96360; 36415; 85025; 80048; 71046; 93010; J2930; J7030; J3490; J7620